=== PATIENT | male | born 1935 | race Caucasian/White ===

== ENCOUNTER 2017-02-28 02:24 | Inpatient (IN) | payer MEDICARE ==
[2017-02-28 02:51] LABS: Basophils # (A) 0.1 k/uL (0-0.2); Basophils % (A) 1 %; CH 30.6; CHCM 31.7; Eosinophils # (A) 0.2 k/uL (0-0.7); Eosinophils % (A) 3 %; HCT 32.2 % (39.0-53.0); HDW 2.59; HGB 10.5 gm/dL (13.0-17.5); Hypochromasia Slight; Luc # (Auto) 0.17; Luc % (Auto) 3; Lymphocytes % (A) 30 %; MCH 31.7 pg (25.0-35.0); MCHC 32.6 g/dL (31.0-37.0); MCV 97.2 fL (80.0-100.0); Monocytes # (A) 0.5 k/uL (0-1.0); Monocytes % (A) 7 %; Neutrophils # (A) 3.9 k/uL (1.3-7.7); Neutrophils % (A) 57 %; RBC 3.31 m/uL (4.30-5.90); WBC 6.7 k/uL (3.8-10.6); WBC (Perox) 6.94
[2017-02-28 03:00] LABS: Calcium 9.5 mg/dL (8.4-10.2); Magnesium 1.6 mg/dL (1.6-2.3); Potassium 4.1 mmol/L (3.5-5.1); Total Bilirubin 0.3 mg/dL (0.2-1.3); Total Protein 6.9 g/dL (6.3-8.2)
[2017-02-28 03:01] LABS: INR 0.9 (<1.2)
[2017-02-28 03:14] LABS: Creatine Kinase 164 U/L (55-170)
[2017-02-28 03:23] LABS: Partial Thromboplastin Time 21.2 sec (22.0-30.0); Prothrombin Time 9.5 sec (9.0-12.0)
[2017-02-28 03:27] LABS: Creatine Kinase MB 2.2 ng/mL (0.0-2.4); Troponin I <0.012 ng/mL (0.000-0.034)
[2017-02-28] MEDS ORDERED: DILTIAZEM 125 MG in SODIUM CHLORIDE 0.9% 100 ML IV ONE (03:30)
[2017-02-28] MEDS ORDERED: DILTIAZEM 5 MG/ML 5 ML VIAL IVP STA (03:30)
--- NOTE | 2017-02-28 03:47 | XR ---
EXAM: XR Chest, 2 Views CLINICAL HISTORY: Reason: Chest Pain TECHNIQUE: Frontal and lateral views of the chest. COMPARISON: No relevant prior studies available. FINDINGS: Lungs: Focal asymmetric opacity projects to the medial right lower lung zone in region of right middle lobe on lateral view which may represent focal infiltrate, but cannot exclude ill-defined pulmonary mass. Lungs are otherwise clear. Pleural space: No evidence of pneumothorax or pleural effusion. Heart: Heart size is within normal limits. Mediastinum: Mediastinal structures are within normal limits. Bones/joints: Degenerative changes involve the mid and lower thoracic spine. IMPRESSION: Focal opacity in region of right middle lobe which may represent right middle lobe pneumonia, but cannot exclude possibility of pulmonary mass/malignancy. Clinical correlation is suggested and short-term radiograph follow-up or CT chest is recommended. [employer] 02/28/17 04:05 Verify Receipt Verified receipt with FATIMAH Garcia on 02/28 04:05 (-04:00)
[2017-02-28] MEDS ORDERED: NITROGLYCERIN SL TABS 0.4 MG TAB SUBLINGUAL PRN (04:49)
[2017-02-28] MEDS ORDERED: SODIUM CHLORIDE 0.9% 1,000 ML IV SCH (05:00)
[2017-02-28 06:31] VITALS: BMI 22.6
--- NOTE | 2017-02-28 06:42 | ED ---
Arrhythmia/Palpitations HPI - General Chief Complaint: Arrhythmia/Palpitations Stated Complaint: AFIB Time Seen by Provider: 02/28/17 03:09 Source: patient Mode of arrival: wheelchair Limitations: no limitations - History of Present Illness Initial Comments: This patient is an 82-year-old man with history of previous atrial fibrillation , who states that he believes she has gone back into this rhythm. He states that he has had symptoms going on 1-2 hours. He states he was trying to go to sleep and then noted that he was not able to. He started feeling flushed and he took his pulse and found that it was rapid and irregular. He also started having a little bit of mild, generalized headache. Patient denies chest pain, dyspnea, diaphoresis, nausea or vomiting. Patient spends half of the year in [facility] and half of the year here. He has not have a doctor here, though he does have a beverage host, Dr. Weiss. Complaint: irregular heart beat Onset/Timin -: hour(s) Context: occurred during rest Arrhythmia History: atrial fibrillation Associated Symptoms: anxiety - Related Data Allergies Allergy/AdvReac Type Severity Reaction Status Date / Time No Known Allergies Allergy Verified 02/28/17 02:34 Review of Systems ROS Statement: Those systems with pertinent positive or pertinent negative responses have been documented in the HPI. ROS Other: All systems not noted in ROS Statement are negative. Constitutional: Denies: fever, chills Respiratory: Denies: cough, dyspnea, wheezes Cardiovascular: Reports: palpitations. Denies: chest pain, orthopnea, edema, syncope Gastrointestinal: Denies: abdominal pain, nausea, vomiting, diarrhea, melena, hematochezia Genitourinary: Denies: dysuria, hematuria Musculoskeletal: Denies: back pain Skin: Denies: rash Neurological: Denies: headache, weakness, numbness Past Medical History Past Medical History: Atrial Fibrillation Additional Past Medical History / Comment(s): allen's esophagus, History of Any Multi-Drug Resistant Organisms: None Reported Past Surgical History: Appendectomy, Tonsillectomy Additional Past Surgical History / Comment(s): back surgery, cataracts Past Psychological History: No Psychological Hx Reported Smoking Status: Former smoker - Past Family History Father Family Medical History: Cancer Mother Family Medical History: Congestive Heart Failure (CHF) General Exam Limitations: no limitations General appearance: alert, anxious Head exam: Present: atraumatic, normocephalic Eye exam: Present: normal appearance. Absent: scleral icterus, conjunctival injection ENT exam: Present: normal oropharynx Respiratory exam: Present: normal lung sounds bilaterally. Absent: respiratory distress, wheezes, rales, rhonchi, stridor Cardiovascular Exam: Present: tachycardia, irregular rhythm, normal heart sounds. Absent: systolic murmur, diastolic murmur, rubs, gallop GI/Abdominal exam: Present: soft. Absent: distended, tenderness, guarding, rebound, mass Extremities exam: Present: normal inspection, normal capillary refill. Absent: pedal edema, calf tenderness Back exam: Present: normal inspection. Absent: CVA tenderness (R), CVA tenderness (L) Neurological exam: Present: alert Skin exam: Present: warm, dry, intact, normal color. Absent: rash Course Vital Signs 02/28/17 02/28/17 02/28/17 02:30 03:06 03:27 Temperature 97.7 F Pulse Rate 108 H 114 H Pulse Rate [ 133 H Pulse Oximetery ] Respiratory 20 18 Rate Blood Pressure 179/85 122/62 O2 Sat by Pulse 99 98 Oximetry 02/28/17 02/28/17 02/28/17 03:47 04:06 04:24 Temperature Pulse Rate 110 H 104 H 96 Pulse Rate [ Pulse Oximetery ] Respiratory 18 18 18 Rate Blood Pressure 115/62 122/68 103/60 O2 Sat by Pulse 97 98 97 Oximetry 02/28/17 02/28/17 02/28/17 04:50 05:18 05:46 Temperature 97.6 F Pulse Rate 100 96 82 Pulse Rate [ Pulse Oximetery ] Respiratory 18 18 18 Rate Blood Pressure 99/75 118/59 118/63 O2 Sat by Pulse 97 98 99 Oximetry EKG Findings - EKG Results: EKG: interpreted by ERMD, normal axis EKG shows: tachycardia (Rate approximate 117 bpm), atrial fibrillation - Blocks, [place], Hypertrophy, ST Abn: Repolarization changes or abnormalities: nonspecific abnormality, ST segment, and/or T wave Medical Decision Making - Lab Data Result diagrams: 02/28/17 02:40 02/28/17 02:40 Lab Results 02/28/17 02/28/17 02/28/17 Range/Units 02:40 02:40 02:40 WBC 6.7 (3.8-10.6) k/uL RBC 3.31 L (4.30-5.90) m/uL Hgb 10.5 L (13.0-17.5) gm/dL Hct 32.2 L (39.0-53.0) % MCV 97.2 (80.0-100.0) fL MCH 31.7 (25.0-35.0) pg MCHC 32.6 (31.0-37.0) g/dL RDW 14.0 (11.5-15.5) % Plt Count 335 (150-450) k/uL Neutrophils % 57 % Lymphocytes % 30 % Monocytes % 7 % Eosinophils % 3 % Basophils % 1 % Neutrophils # 3.9 (1.3-7.7) k/uL Lymphocytes # 2.0 (1.0-4.8) k/uL Monocytes # 0.5 (0-1.0) k/uL Eosinophils # 0.2 (0-0.7) k/uL Basophils # 0.1 (0-0.2) k/uL Hypochromasia Slight PT (9.0-12.0) sec INR (<1.2) APTT (22.0-30.0) sec Sodium 142 (137-145) mmol/L Potassium 4.1 (3.5-5.1) mmol/L Chloride 108 H (98-107) mmol/L Carbon Dioxide 24 (22-30) mmol/L Anion Gap 10 mmol/L BUN 22 H (9-20) mg/dL Creatinine 1.40 H (0.66-1.25) mg/dL Est GFR (MDRD) Af Amer 59 (>60 ml/min/1.73 sqM) Est GFR (MDRD) Non-Af 49 (>60 ml/min/1.73 sqM) Glucose 99 (74-99) mg/dL Calcium 9.5 (8.4-10.2) mg/dL Magnesium 1.6 (1.6-2.3) mg/dL Total Bilirubin 0.3 (0.2-1.3) mg/dL AST 24 (17-59) U/L ALT 29 (21-72) U/L Alkaline Phosphatase 97 (38-126) U/L Total Creatine Kinase 164 (55-170) U/L CK-MB (CK-2) 2.2 (0.0-2.4) ng/mL CK-MB (CK-2) Rel Index 1.3 Troponin I <0.012 (0.000-0.034) ng/mL Total Protein 6.9 (6.3-8.2) g/dL Albumin 4.0 (3.5-5.0) g/dL 02/28/17 Range/Units 02:40 WBC (3.8-10.6) k/uL RBC (4.30-5.90) m/uL Hgb (13.0-17.5) gm/dL Hct (39.0-53.0) % MCV (80.0-100.0) fL MCH (25.0-35.0) pg MCHC (31.0-37.0) g/dL RDW (11.5-15.5) % Plt Count (150-450) k/uL Neutrophils % % Lymphocytes % % Monocytes % % Eosinophils % % Basophils % % Neutrophils # (1.3-7.7) k/uL Lymphocytes # (1.0-4.8) k/uL Monocytes # (0-1.0) k/uL Eosinophils # (0-0.7) k/uL Basophils # (0-0.2) k/uL Hypochromasia PT 9.5 (9.0-12.0) sec INR 0.9 (<1.2) APTT 21.2 L (22.0-30.0) sec Sodium (137-145) mmol/L Potassium (3.5-5.1) mmol/L Chloride (98-107) mmol/L Carbon Dioxide (22-30) mmol/L Anion Gap mmol/L BUN (9-20) mg/dL Creatinine (0.66-1.25) mg/dL Est GFR (MDRD) Af Amer (>60 ml/min/1.73 sqM) Est GFR (MDRD) Non-Af (>60 ml/min/1.73 sqM) Glucose (74-99) mg/dL Calcium (8.4-10.2) mg/dL Magnesium (1.6-2.3) mg/dL Total Bilirubin (0.2-1.3) mg/dL AST (17-59) U/L ALT (21-72) U/L Alkaline Phosphatase (38-126) U/L Total Creatine Kinase (55-170) U/L CK-MB (CK-2) (0.0-2.4) ng/mL CK-MB (CK-2) Rel Index Troponin I (0.000-0.034) ng/mL Total Protein (6.3-8.2) g/dL Albumin (3.5-5.0) g/dL Disposition Clinical Impression: Atrial fibrillation Disposition: ADMITTED IP TO THIS HOSP Condition: Fair
[2017-02-28 08:57] VITALS: RESP 16
[2017-02-28] MEDS ORDERED: ENOXAPARIN 80 MG/0.8 ML SYRINGE SQ SCH (09:00)
[2017-02-28 09:45] LABS: Creatine Kinase MB 1.9 ng/mL (0.0-2.4); Troponin I 0.023 ng/mL (0.000-0.034)
[2017-02-28] MEDS ORDERED: AMIODARONE 200 MG TAB PO SCH (11:30)
[2017-02-28] MEDS ORDERED: APIXABAN 2.5 MG TABLET PO SCH (12:00)
[2017-02-28] MEDS ORDERED: METOPROLOL TARTRATE 25 MG TAB PO SCH (12:00)
[2017-02-28 12:08] VITALS: BP 151/68; PULSE 51; TEMP 96.8
[2017-02-28 16:16] LABS: Creatine Kinase MB 1.8 ng/mL (0.0-2.4); Troponin I 0.029 ng/mL (0.000-0.034)
--- NOTE | 2017-02-28 20:24 | CONS ---
This is an 82-year-old gentleman who lives part-time in [place] and part-time in [place]. He came into the hospital because he felt his heart racing, palpitations, some shortness of breath, weakness; just did not feel right and was found to be in atrial fibrillation with a rapid ventricular rate. He was placed on Cardizem drip and he has now converted to sinus rhythm and is resting comfortably. About 4 years ago he had a similar problem, and since then he has not had recurrence. About a year and a half ago he stopped taking anticoagulation upon the advice of his broth mixer, Dr. Gilmore, in [place], [place]. However, he has seen Dr. Weiss in the past when he comes to [place]. He visits [place] in the summertime. At the time of my evaluation, he is resting comfortably. He denies any chest discomfort. He feels quite well and wishes to go home. PAST MEDICAL HISTORY: 1. Paroxysmal atrial fibrillation. 2. Hypertension. 3. Hyperlipidemia. No evidence of any prior myocardial infarction or CVA. Medications at home include: 1. Amiodarone 100 mg daily. 2. Gabapentin. 3. Atorvastatin 40 mg daily. 4. Aspirin 81 mg daily. 5. Quinapril 40 mg daily. Laboratory data suggest that his troponins are normal. Creatinine is slightly elevated. His hemoglobin is also low at 10.5. MCV is normal. Thyroid functions are within normal limits. On examination, blood pressure is 140/70, pulse rate about 80 per minute, regular. HEENT: Unremarkable. Fundus was not examined by me. Neck is supple. No JVD. I do not hear a carotid bruit. There is no thyromegaly. Heart exam reveals S1, S2 with a short systolic murmur in the base. Rhythm seems to be regular. Lungs are clear. Abdomen is soft and non-tender. Lower extremities reveal normal pulses; no edema. Central nervous system is normal. EKG revealed atrial fibrillation with rapid rate; non-specific ST-T changes. Repeat rhythm strip reveals sinus mechanism. IMPRESSION: 1. Paroxysmal atrial fibrillation. 2. Hypertension. 3. Hyperlipidemia. RECOMMENDATIONS: I am recommending that we place him on full anticoagulation. I explained to him risks, benefits, options, rationale and importance of stroke prevention. We will start him on Eliquis 2.5 mg b.i.d. because of his mild renal dysfunction and age of more than 80 years. He is advised to see Dr. Weiss in the office in one week. I am also asking him to increase amiodarone to 200 mg daily, and metoprolol tartrate will be 25 mg b.i.d. Cardizem drip has been stopped. I discussed my thoughts in detail with the patient. Thank you very much for the consult. SANDRITA
--- NOTE | 2017-02-28 23:02 | HP ---
CHIEF COMPLAINT: [id number]-old white male with atrial fibrillation with tachycardia. HISTORY OF PRESENT ILLNESS: This is an 82-year-old white male with previous history atrial fibrillation. He developed tachycardia, irregular heart rate. He was brought to the hospital for ( ) IV Cardizem drip. He was waiting for cardiology consultation. Thyroid has been ordered. Home medications have been ordered. He is here for 3 months a year up in his cottage in [place] with his . ALLERGIES: NO KNOWN DRUG ALLERGIES. Fourteen-point review of systems negative except for that mentioned in HPI. PAST MEDICAL HISTORY: 1. Atrial fibrillation in the past. 2. Pool's esophagus ( ) 3. History of tonsillectomy. 4. Adenoidectomy. 5. Back surgery. 6. Cataracts. SOCIAL HISTORY: Former smoker. FAMILY HISTORY: Father had cancer. Mother had CHF. PHYSICAL EXAM: CARDIAC: Irregularly irregular rhythm. Heart rate is 110 to 120s. APPEARANCE: Alert, anxious. Normocephalic, atraumatic. OPHTHALMOLOGIC: Pupils equal, round and reactive to light and accommodation. ENT: External ear canals within normal limits. Lungs are clear. GI: Soft, non-tender. HEMATOLOGIC: Negative Radu's. BACK: Normal inspection with CVA tenderness. NEUROLOGIC: Alert and oriented x3. SKIN: Warm, dry and intact. Temperature 97.7, pulse rate 108 to 114. Respiratory rate 18 to 20. Blood pressure 120s to 170s over 70s to 80s. Oxygen saturation 98% on room air. EKG shows irregularly irregular rhythm. Hemoglobin is 10.5. BUN is 22, creatinine 1.40. ASSESSMENT: 1. Atrial fibrillation with rapid ventricular response, recurrent. 2. Stage III renal insufficiency. 3. Acute on chronic anemia. PLAN: Cardiology is consulted. IV Cardizem is being used. Long-term blood thinner will be needed. Prescriptions will be possibly Eliquis or Xarelto. Discussed with the family. Will discuss with Cardiology. Please see further orders. MTDD
[2017-03-01] MEDS ORDERED: ASPIRIN 325 MG TAB PO SCH (09:00)
--- NOTE | 2017-03-01 10:50 | ECHOF ---
Referral Reason:PAF MEASUREMENTS -------- HEIGHT: 182.9 cm WEIGHT: 71.7 kg BP: 121/68 IVSd: 0.7 cm (0.6 - 1.1) LVIDd: 5.0 cm (3.9 - 5.3) LVPWd: 0.9 cm (0.6 - 1.1) IVSs: 1.4 cm LVIDs: 2.4 cm LVPWs: 1.1 cm Ao Diam: 3.2 cm (2.0 - 3.7) AV Cusp: 2.0 cm (1.5 - 2.6) LA Diam: 3.4 cm (2.7 - 3.8) MV E Colton: 0.80 m/s MV DecT: 188 ms MV A Colton: 1.02 m/s MV E/A Ratio: 0.79 RAP: 5.00 mmHg RVSP: 36.63 mmHg FINDINGS -------- Sinus rhythm. This was a technically adequate study. The left ventricular size is normal. Left ventricular wall thickness is normal. Overall left ventricular systolic function is normal with, an EF between 55 - 60 %. The right ventricle is normal in size and function. The left atrium is normal in size. The right atrium is normal in size. Aortic valve is trileaflet and is mildly thickened. The mitral valve leaflets are mildly thickened. Mild mitral regurgitation is present. Mild tricuspid regurgitation present. There is mild pulmonary hypertension. The right ventricular systolic pressure, as measured by Doppler, is 36.63mmHg. There is no pulmonic regurgitation present. The aortic root size is normal. There is no pericardial effusion. CONCLUSIONS -------- 1. Sinus rhythm. 2. There is mild pulmonary hypertension. 3. There is no pulmonic regurgitation present. 4. The aortic root size is normal. 5. There is no pericardial effusion. 6. This was a technically adequate study. 7. Left ventricular wall thickness is normal. 8. Overall left ventricular systolic function is normal with, an EF between 55 - 60 %. 9. The left atrium is normal in size. 10. Aortic valve is trileaflet and is mildly thickened. 11. The mitral valve leaflets are mildly thickened. 12. Mild mitral regurgitation is present. 13. Mild tricuspid regurgitation present. SCRAP PILER: Angy Wilks [facility]
== END 2017-02-28 17:25 | disposition home or self-care (01) | DRG 310 ==
LOC: EC 02:24 → 6SEL 04:49
PROVIDERS: ADMIT Family Medicine; ATTEND Family Medicine
DX: I48.0 Paroxysmal atrial fibrillation (principal); N18.3 Chronic kidney disease, stage 3 (moderate); D64.9 Anemia, unspecified; I12.9 Hypertensive chronic kidney disease with stage 1 through stage 4 chronic kidney disease, or unspecified chronic kidney disease; E78.5 Hyperlipidemia, unspecified; R01.1 Cardiac murmur, unspecified; R53.1 Weakness; K22.70 Barrett's esophagus without dysplasia; R51 Headache; F41.9 Anxiety disorder, unspecified; Z87.891 Personal history of nicotine dependence; Z82.49 Family history of ischemic heart disease and other diseases of the circulatory system; Z80.9 Family history of malignant neoplasm, unspecified; Z79.82 Long term (current) use of aspirin; Z79.899 Other long term (current) drug therapy; Z90.49 Acquired absence of other specified parts of digestive tract; Z98.49 Cataract extraction status, unspecified eye
CPT/HCPCS: 36415; 71020; 80053; 82550; 82553; 83735; 84443; 84484; 85025; 85610; 85730; 93005; 93306; 96365; 96366; 96376; 99285

== ENCOUNTER → 2017-03-09 | Outpatient (CLI) | payer MEDICARE ==
--- NOTE | 2017-03-09 11:31 | XR ---
EXAMINATION TYPE: XR chest 2V DATE OF EXAM: 03/09/2017 HISTORY: R91.8 prior abnormal. REFERENCE: Previous study dated 02/28/2017. FINDINGS: The lungs are overinflated. There is a 2.5 x 3.9 cm right middle lobe pulmonary mass. The l eft lung is clear. Pleural spaces are clear. Heart size is normal. IMPRESSION: 1. COPD. 2. RIGHT MIDDLE LOBE PULMONARY MASS. A CT SCAN OF THE CHEST IS SUGGESTED.
== END | disposition home or self-care (01) ==
LOC: RADXRMAIN 11:13
PROVIDERS: ATTEND Family Medicine
DX: R91.8 Other nonspecific abnormal finding of lung field (principal); J44.9 Chronic obstructive pulmonary disease, unspecified
CPT/HCPCS: 71020

== ENCOUNTER → 2017-03-22 | Outpatient (CLI) | payer MEDICARE ==
[2017-03-22 13:19] LABS: Blood Urea Nitrogen 22 mg/dL (9-20); Non-African American GFR(MDRD) 54 (>60 ml/min/1.73 sqM)
--- NOTE | 2017-03-22 14:09 | CT ---
EXAMINATION TYPE: CT chest w con DATE OF EXAM: 03/22/2017 COMPARISON: Chest x-ray March 09, 2017 and February 28, 2017 HISTORY: right sided lung mass, abnormal chest x-ray CT DLP: 314.4 mGycm. Automated Exposure Control for Dose Reduction was Utilized. TECHNIQUE: CT scan of the thorax is performed following with IV Contrast, patient injected with 80 m L of Visipaque 320. FINDINGS: LUNGS: Suspicious right middle lobe mass is confirmed measuring 3.6 x 2.2 cm on axial image 36. Ther e is some linear scarring or atelectasis anteriorly and inferiorly to this. Remainder of both lungs a re clear There is no pleural effusion or pneumothorax seen bilaterally. The tracheobronchial tree is patent. MEDIASTINUM: There are no greater than 1 cm hilar or mediastinal lymph nodes. There is prominent but subcentimeter prevascular lymph node on axial image 20 noted measuring 10 x 8 mm. No pericardial ef fusion is seen. Heart size is upper limits of normal. Coronary artery calcification is seen which is noted marker for coronary artery disease. OTHER: Bilateral gynecomastia is present. In addition medial and inferior to left nipple there is 1.2 cm round breast nodule that warrants further workup on axial image 35. There is 1.6 x 1.4 cm nodule along posterior inferior gastric wall could reflect diverticulum, adjace nt mass or adenopathy is not excluded on axial image 58. This can be correlated with PET/CT workup af ter tissue diagnosis. There is moderate mixed plaque in the visualized aorta extending into arch bran ch vessels. Osseous structures are demineralized. Multilevel spurring in the spine is present. IMPRESSION: 1. Suspicious right middle lobe mass is confirmed worrisome for neoplasm. Consider PET/CT correlation . 2. Suspicious left breast lesion, further workup with targeted ultrasound is advised to assess. 3. Nonspecific upper abdominal lesion can be further assessed with PET CT follow-up.
== END | disposition home or self-care (01) ==
LOC: RADCTMAIN 12:29
PROVIDERS: ATTEND Family Medicine
DX: R91.8 Other nonspecific abnormal finding of lung field (principal); R22.2 Localized swelling, mass and lump, trunk
CPT/HCPCS: 82565; 84520; 71260; 36415; Q9967